=== PATIENT | male | born 1950 | race Caucasian/White ===

== ENCOUNTER → 2020-06-02 11:17 | Outpatient (CLI) | payer OTHER, SELFPAY ==
[2020-06-02 11:32] LABS: Bacteria Urine None Seen; RBC Urine None Seen (0-5/HPF); WBC Urine None Seen (0-5/HPF)
[2020-06-02 11:58] LABS: Add Manual Diff / Slide Review NO; Basophils Absolute Auto 0 /uL (0-100); Basophils Percent Auto 0.4 % (0-2); Eosinophils Absolute Auto 100 /uL (0-450); Eosinophils Percent Auto 0.9 % (2-4); Hematocrit 40.8 % (41-53); Hemoglobin 14.1 g/dL (13.5-17.5); Lymphocytes Absolute Auto 1800 /uL (1100-4500); Lymphocytes Percent Auto 22.7 % (25-40); Mean Corpuscular HGB Conc 34.7 % (30-36); Mean Corpuscular Hemoglobin 30.5 PG (26-34); Mean Corpuscular Volume 87.9 fL (80-100); Monocytes Absolute Auto 700 /uL (0-900); Monocytes Percent Auto 8.7 % (3-14); Neutrophils Absolute Auto 5400 /uL (1500-7000); Neutrophils Percent Auto 67.3 % (50-75); Platelet Count 263 X10^3/uL (150-400); Red Blood Cell Count 4.64 X10^6/uL (4.5-5.9); Red Cell Distribution Width 13.8 % (11.6-14.8)
[2020-06-02 12:05] LABS: BUN Creatinine Ratio 25.6 (6-22); Blood Urea Nitrogen 23 mg/dL (9-20); Calcium 10.7 mg/dL (8.4-10.2); Carbon Dioxide 25 mmol/L (22-32); Chloride 105 mmol/L (98-107); Estimated Glomerular Filt Rate > 60.0 mL/min (>60); Glucose 127 mg/dL (80-110); HEMOLYSIS < 15 (0-50); Potassium 4.8 mmol/L (3.4-5.1); Sodium 139 mmol/L (137-145)
[2020-06-02 12:15] LABS: Appearance Urine UA CLEAR; Bilirubin Urine UA NEGATIVE (NEGATIVE); Color Urine UA YELLOW; Glucose Urine UA TRACE g/dL (Negative); Ketones Urine UA TRACE (NEGATIVE); Leukocyte Esterase Urine UA NEGATIVE (NEGATIVE); Nitrite Urine UA NEGATIVE (Negative); Occult Blood Urine UA NEGATIVE (Negative); Protein Urine UA NEGATIVE (Negative); Specific Gravity Urine UA 1.025 (1.000-1.035); Urobilinogen Urine UA 0.2 E.U./dL (0.2); pH Urine UA 5.5 (4.5-8.0)
[2020-06-02 12:20] LABS: Culture Indicated Urine Cult Not Indicated; Urine Comments Microscopic Normal
== END ==
PROVIDERS: Referring Provider Orthopaedic Surgery; Visit Provider Orthopaedic Surgery
DX: Z01.818 Encounter for other preprocedural examination (principal); Z01.812 Encounter for preprocedural laboratory examination; R73.9 Hyperglycemia, unspecified; N39.0 Urinary tract infection, site not specified
CPT/HCPCS: 36415; 80048; 81001; 83036; 85025; 93005; 93010

== ENCOUNTER → 2020-06-28 09:25 | Outpatient (CLI) | payer OTHER, SELFPAY ==
[2020-06-28 11:13] LABS: COVID19 -Nasal RAPID Negative (Negative)
== END ==
PROVIDERS: Referring Provider Orthopaedic Surgery; Visit Provider Student in an Organized Health Care Education/Training Program
DX: Z01.812 Encounter for preprocedural laboratory examination (principal); Z20.822 Contact with and (suspected) exposure to COVID-19
CPT/HCPCS: 87635

== ENCOUNTER 2020-06-29 08:32 | Day surgery (SDC) | payer OTHER, SELFPAY ==
[2020-06-29] VITALS (13 sets, daily range): BP systolic 116–163; BP diastolic 61–89; PULSE 51–61; RESP 11–18; TEMP 36.2–36.6; O2SAT 95–100; BMI 30.3
--- NOTE | 2020-06-29 06:00 | DI.RAD.S_ITS ---
PROCEDURE: XR HIP W PEL IF DONE RT 2V INDICATIONS: right total hip TECHNIQUE: AP pelvis and lateral view of the right hip acquired. COMPARISON: [facility], CR, XR PELVIS 1-2V, 06/29/2020, 12:42. [facility] [place], CR, XR PELVIS WITH LATERAL HIP RIGHT, 05/19/2020, 11:52. FINDINGS: Bones: Patient is status post right hip arthroplasty, with hardware components in expected positions. The hip joint appears congruent. The visualized bony structures appear intact. Soft tissues: Overlying postoperative changes are noted. No suspicious soft tissue densities. IMPRESSION: Right hip prosthesis in anatomic alignment. Dictated by: Anastasia Gordillo M.D. on 06/29/2020 at 17:31 Approved by: Anastasia Gordillo M.D. on 06/29/2020 at 17:31
[2020-06-29] MEDS: LACTATED RINGERS 1,000 ML 42 ML IV ×2 (09:08→13:15)
[2020-06-29] MEDS: ACETAMINOPHEN 325 MG TABLET 975 MG PO (09:09)
[2020-06-29] MEDS: CELECOXIB 200 MG CAPSULE PO (09:09)
[2020-06-29] MEDS: VANCOMYCIN 1,000 MG/200 ML PIGGYBACK 200 MG IV (09:52)
--- NOTE | 2020-06-29 11:04 | PM.PREOP ---
Pre-operative Note COVID-19 COVID-19 status: Negative Interval Note History & Physical reviewed/Exam performed by Physician: Yes Changes to H&P: No
--- NOTE | 2020-06-29 11:04 | PM.OP.1 ---
Operative Date/Time/Diagnoses Date of procedure: 06/29/20 Time of procedure: 11:39 Pre-op diagnosis: right hip OA Post-op diagnosis: same Procedure & Clinicians Procedure: Right total hip posterior approach Same procedure as scheduled: Yes Indications: The patient has had progressively worsening right hip pain with radiographic changes consistent with arthritis. Non-operative management has failed and the patient has requested total hip replacement. The risks, benefits and alternatives to surgery were discussed with the patient prior to proceeding. Risks discussed included, but were not limited to, failure to relieve pain, leg length discrepancy, dislocation, stiffness, infection, nerve damage, deep venous thrombosis, pulmonary embolism, stroke, coma, heart attack, permanent paralysis and , as well as the potential need for eventual revision of the prosthetic. Surgeon: Lisa Braswell [facility] Director: Luisito Rodrigues Click Yes if Unassisted: Yes Anesthesia Type: General and Spinal Operative Notes Findings: Severe right hip arthritis, good bone and adequate stability Closure Type: primary Specimen(s): none sent Prosthetic devices, grafts, tissues, transplants, or devices: Braswell and nephew 54 mm R3 cup, one screw, neutral poly liner, size 8 high offset anthology a fit, +0 head Applied: drain(s) Estimated Blood Loss (mL): 250 Blood products transfused: none Procedure in detail: The patient was seen in the pre-operative area, where the patient identified the right hip as the operative site and this was marked with my initials. The patient received pre-operative antibiotics and was taken to the operating room and placed on the operative table in the left lateral decubitus position after satisfactory anesthesia. A timekeeper out was performed. The right leg was prepared from the ankle to the iliac crest with ChloroPrep in the usual fashion and draped through sterile drapes. The hip was approached through an approximately 20 cm incision centered over the greater trochanter and curving gently posteriorly as it went proximally. This was carried sharply to the fascia wilmer, which was divided and retracted with a self retaining retractor. The trochanteric bursa was excised with care being taken to avoid the sciatic nerve, which was identified and protected throughout the case. The short external rotators were incised and the capsulomuscular flap was raised and tagged for later repair. The hip was dislocated, and a femoral neck osteotomy performed approximately 15 mm above the lesser trochanter. Retractors were placed around the femur. The canal was opened with a box cutting osteotome, followed by a T handled reamer and a lateralizing reamer. The chili pepper broach was then used, followed by sequential broaching until there was good stability of the broach in the femur. He had a fairly small canal distally in an anthology a was selected for broaching. Retractors were placed to expose the acetabulum. The labrum and central soft tissues were removed. Reaming was performed initially going up in 2 mm increments, then 1 mm increments until good bite was obtained with an odd sized reamer. The cup 1 mm larger than the last reamer was then inserted using the appropriate anteversion guides. A trial neutral liner was placed. The broach was placed in the canal. A trial head and neck were then placed and the hip relocated and checked for leg length and stability. An intraoperative film confirmed the component position and no evidence of fracture. The patient was stable in the position of sleep, of squatting, and could be put through a range of motion with 45 degrees internal rotation without dislocation. At 90 degrees flexion, internal rotation to 80? was possible before dislocation. I did several different trials including a standard offset and a high offset he had much better stability with the high offset. I also placed screw in the acetabulum to further stabilize the acetabulum. This was felt to be satisfactory and the appropriate components were opened, and the trials were removed. The acetabular liner was impacted into position. The final stem was then impacted into the prepared femoral canal. A brief Betadine soak was performed while trialing with head options. The hip was meticulously irrigated with normal saline. Finally the femoral head was impacted onto the stem. The acetabulum was cleared of all material and the hip relocated one final time. The capsulomuscular flap was then repaired to the greater trochanter though an awl hole using the tag sutures. The short external rotators were repaired with a nonabsorbable suture. A deep drain was placed and brought out anteriorly. The fascia wilmer was closed with Vicryl. The subcutaneous layer was closed with barbed sutures and SteriStrips. An Aquacel Ag dressing was applied and the patient was taken to recovery having tolerated the procedure well. Complications: none Post-operative Condition: critical Disposition: Acute Care Plan for aftercare: The patient will be maintained on a standard total hip replacement protocol with weight bearing as tolerated and posterior hip precautions. The patient will receive Aspirin and sequential compression devices for DVT prophylaxis. The patient will be discharged home when safe for the home environment.
[2020-06-29] MEDS: CEFAZOLIN 1 GM VIAL 2 GM IV ×2 (11:16→18:55)
[2020-06-29] MEDS: TRANEXAMIC ACID 1,000 MG VIAL 1000 MG INJ ×2 (11:44→13:23)
--- NOTE | 2020-06-29 12:00 | DI.RAD.S_ITS ---
PROCEDURE: XR PELVIS 1-2V INDICATIONS: TOTAL RIGHT HIP TECHNIQUE: Intra-operative view of the pelvis and hip acquired. COMPARISON: [facility] [place], CR, XR PELVIS WITH LATERAL HIP RIGHT, 05/19/2020, 11:52. [facility], CR, XR PELVIS WITH LATERAL HIP RIGHT, 10/23/2019, 9:20. FINDINGS: Bones: Intraoperative devices prior to placement of arthroplasty prostheses are in expected positions. No fractures or suspicious bony lesions. Soft tissues: Overlying surgical retractors are present, along with other intraoperative changes. IMPRESSION: Intraoperative device in anatomic alignment. Dictated by: Anastasia Gordillo M.D. on 06/29/2020 at 14:23 Approved by: Anastasia Gordillo M.D. on 06/29/2020 at 14:23
--- NOTE | 2020-06-29 12:05 | SUR.OPER ---
Lateral on padded OR bed. Gel axillary roll. Arms secured on padded armboard with pillow supporting top arm. Padded hip positioner braces x4 - anterior and posterior chest and pelvis. Additional gel pad used anterior pelvis. Gel pad under bottom leg from knee to foot and secured with tape over sheet.
[2020-06-29] MEDS: BUPIVACAINE 0.25% W/ EPI 30 ML VIAL 60 ML INJ (12:11)
[2020-06-29] MEDS: BUPIVACAINE LIPOSOME 266 MG/20 ML VIAL INJ (12:12)
[2020-06-29] MEDS: SODIUM CHLORIDE IRRIG SOLUTION 250 ML, EPINEPHrine 1 MG IRR (12:13)
[2020-06-29] MEDS: LACTATED RINGERS 1,000 ML 125 ML IV ×2 (14:59→23:56)
[2020-06-29] MEDS: IBUPROFEN 400 MG TABLET PO ×2 (16:54→20:27)
[2020-06-29] MEDS: ACETAMINOPHEN 325 MG TABLET 650 MG PO ×2 (16:54→20:26)
[2020-06-29] MEDS: METFORMIN HCL 500 MG TABLET PO (16:54)
[2020-06-29] MEDS: ASPIRIN EC 81 MG TABLET PO (20:26)
[2020-06-29] MEDS: DOCUSATE 100 MG CAPSULE PO (20:26)
[2020-06-29] MEDS: ATORVASTATIN 20 MG TABLET 40 MG PO (20:27)
--- NOTE | 2020-06-29 22:44 | PC.NURSE ---
PATIENT UNABLE TO URINATE,UP TO BATHROOM WITHOUT RESULTS, REQUESTS APPROX. 30MINUTES TO DRINK MORE WATER AND TRY AGAIN.DOES NOT WANT STRAIGHT CATH TO BE PLACED IF AT ALL POSSIBLE
[2020-06-30] MEDS: IBUPROFEN 400 MG TABLET PO ×4 (00:13→13:29)
[2020-06-30] MEDS: LIDOCAINE JELLY 2% 5 ML 5 APPLIC TOP (00:13)
--- NOTE | 2020-06-30 01:38 | PC.NURSE ---
Podiatry Doctor Note-Upon start of shift, patient ambulated into BR with walker and SBA, attempt to void again, was unable. Patient was anxious about In/Out catheter, I reviewed rational for procedure, agreed to proceed. Met some resistance during insertion of catheter which caused significant brief pain, when entered bladder, 900ml clear jeb urine was drained, patient then says I feel relieved. Scheduled ibuprofen given.
[2020-06-30] MEDS: CEFAZOLIN 1 GM VIAL 2 GM IV (03:09)
[2020-06-30 05:09] VITALS: BP 120/70; PULSE 59; RESP 18; TEMP 36.4; O2SAT 95
[2020-06-30 06:01] LABS: Hematocrit 35.3 % (41-53); Hemoglobin 11.9 g/dL (13.5-17.5)
[2020-06-30 08:00] VITALS: BP 116/65; PULSE 58; RESP 16; TEMP 36.5; O2SAT 97
[2020-06-30] MEDS: METFORMIN HCL 500 MG TABLET PO (08:28)
[2020-06-30] MEDS: ACETAMINOPHEN 325 MG TABLET 650 MG PO ×2 (08:29→13:30)
[2020-06-30] MEDS: lisinopriL 5 MG TABLET PO (08:29)
[2020-06-30] MEDS: ASPIRIN EC 81 MG TABLET PO (08:29)
[2020-06-30] MEDS: DOCUSATE 100 MG CAPSULE PO (08:29)
[2020-06-30] MEDS: AMLODIPINE 5 MG TABLET 10 MG PO (08:29)
[2020-06-30] MEDS: SODIUM CHLORIDE 0.9% FLUSH 10 ML IV (08:30)
--- NOTE | 2020-06-30 09:05 | PT.IIE ---
Current Diagnoses Unilateral primary osteoarthritis, right hip (06/29/20) Surgery Performed Operation Date: 06/29/20 10:45 Actual Procedures p Total Hip Arthroplasty(Right) - Lisa Braswell MD Medical History (Last Updated 06/29/20 @ 08:27 by Dafne Ramon RN) Diabetes Diabetes Hyperlipidemia Hypertension Physical Therapy Inpatient Evaluation/Re-Eval M1 PT/OT-IP Prior Functional Status Start: 06/30/20 11:38 Freq: NEEDED Status: Active Protocol: Document 06/30/20 09:05 AB (Rec: 06/30/20 11:49 AB [id number]) Medical Review Prior Functional Status Medical History Reviewed Yes Communication able to make needs known Mobility and Gait pt stated that he is modified independent with all mobilities and ambulation without AD indoors but uses a SPC for outdoor mobility Social History Household Members spouse Living Arrangements Apartment/Condo Number of Floors (Floors) Two Floors Number of Stairs To Enter/Railing? pt stays on main level of the house 5 steps with wide B rails ( can only hold on to 1 rail at a time) Home Environment High Toilet,Tub/Shower Home Equipment Front Wheel Walker,Straight Cane,Hand Held Shower Employment Status Retired Additional Social History Comment pt will sleep on a daybed M2 PT-IP Current Condition Start: 06/30/20 11:38 Freq: NEEDED Status: Active Protocol: Document 06/30/20 09:05 AB (Rec: 06/30/20 11:49 AB [email or web address]) Physical Therapy Current Condition Current Condition Evaluation Date 06/30/20 Treatment Diagnosis s/p R EBONY posterior approach; difficulty in walking Onset Date 06/29/20 Precautions Posterior Hip Precautions No Hip Flexion > 90 degrees,No Hip Internal Rotation,No Hip Adduction Weight Bearing Status Weight Bearing Status Weight Bear as Tolerated Allowed Weight Bearing Amount (enter % RLE WBAT or #) (%) M3 PT-IP Subjective Start: 06/30/20 11:38 Freq: NEEDED Status: Active Protocol: Document 06/30/20 09:05 AB (Rec: 06/30/20 11:49 AB [email or web address]) Subjective Physical Therapy Visit Type Type Initial Evaluation Visit Start Time 09:05 Visit Stop Time 10:05 Total Visit Minutes 60 Number of METER TESTER POLYPHASE Visits 0 Physical Therapy Visit Comments Patient Comments pt is agreeable to do PT Therapy Pain Assessment Pain Present Pain Present Denied Pain M4 PT-IP Mobility and Gait Start: 06/30/20 11:38 Freq: NEEDED Status: Active Protocol: Document 06/30/20 09:05 AB (Rec: 06/30/20 11:49 AB [email or web address]) PT-Bed Mobility Assessment Supine to Sit Supine to Sit Standby Assistance Sit to Supine Sit to Supine Standby Assistance Scooting Scooting to Edge of Bed Standby Assistance PT-Transfer Assessment Sit to and From Stand Sit to and from Stand Standby Assistance,Contact Guard Assistance,1 Person Assistance,Use of Upper Extremities Equipment Transfer Assistive Device Gait Belt,Front Wheeled Walker Orthotic/Prosthetic Devices or Brace: No Transfers Transfer Destination Chair Transfer Technique Stand Step Pivot Transfer Ability Level of Assist Standby Assistance,Contact Guard Assistance,1 Person Assistance,Use of Upper Extremities Comments Mobility Comments pt up and standing when PT came in. instructed to sit down. educated pt regarding hip precautions and understood . pt can be impulsive. completed sit to stand CGA and cues with LOB posteriorly and instructed for steadiness. instructed pt to sit back. educated pt on sit to stand techniques. completed sit <> stand x 5 reps SBA with initial cues but kirstie to complete without cues after a few reps. completed ambulation in room using FWW CGA ~ 30 ft and cued for R quads activation. educated on safety. pt rested on chair and agreed to ambulate and do stairs afterwards. completed sit to stand from chair SBA and ambualted ~ 150 ft using fWW SBA. educated on up/down steps using R rail ascending. pt completed CGA with initial cues and able to complete another set without cues. pt ambulated back to his room using FWW SBA. agreed to sit up on chair. call light and table placed within reach. Gait Assessment Gait Gait Assistance Required: Standby Assistance,Contact Guard Assist,1 Person Assist Distance (Feet) 150 Able to Maintain Weight Bearing Status Yes During Gait Assistive Devices Assistive Device Gait Belt,Front Wheeled Walker Orthotic/Prosthetic Devices or Brace: No Gait Deviations General Gait Pattern Antalgic,Decreased Stride Length,Decreased Feet Clearance Factors Limiting Gait Function Factors Limiting Gait Function Decreased Activity Tolerance, Decreased Strength,Pain,Poor Balance,Poor Safety Awareness Comments Gait Comments pls refer to mobility section for details Stair Climbing Assessment Evaluation Level of Assist On Stairs Contact Guard Assistance Devices Stair Climbing Assistive Devices Right Railing Technique/Endurance Stair Climbing Direction Ascend and Descend Stair Climbing Technique Step to Step Number of Steps Climbed 3 Query Text: Stair Climbing Set # Repetitions (reps) 2 PT-Balance Assessment Sitting Balance and Reactions Static Sitting Balance Ability Normal Dynamic Sitting Balance Ability Good Standing Balance and Reactions Static Standing Balance Ability Fair Dynamic Standing Balance Ability Fair Device Used FWW M5 PT-IP Objective Assessments Start: 06/30/20 11:38 Freq: NEEDED Status: Active Protocol: Document 06/30/20 09:05 AB (Rec: 06/30/20 11:49 AB [email or web address]) Orientation Orientation/Cognition Level of Alertness Alert Orientation Name,Age,Birthday,Month,Date, Year,Day of Week,Place, Situation Language Function Ability No Deficits Noted Safety Awareness Decreased Safety Awareness Memory Description No Deficits Noted Gross Range of Motion Lower Extremity ROM Assessment Within Functional Limits Strength Lower Extremity Strength Assessment Right Impaired Hip 3+/5 Knee 4-/5 Coordination Assessment Gross Coordination Gross Coordination WNL Sensation Assessment Sensation Gross Sensation WNL Muscle Tone Muscle Tone WNL Yes M6 PT-IP Treatment Start: 06/30/20 11:38 Freq: NEEDED Status: Active Protocol: Document 06/30/20 09:05 AB (Rec: 06/30/20 11:49 AB [email or web address]) Physical Therapy Treatment Education Education Provided Precautions,Weight Bearing Status,Post-Op Packet,Safety M7 PT-IP Assessment and Plan Start: 06/30/20 11:38 Freq: NEEDED Status: Active Protocol: Document 06/30/20 09:05 AB (Rec: 06/30/20 11:49 AB [email or web address]) PT Summary Assessment and Plan Potential Rehabilitation Potential Good Status of Condition at Evaluation Stable Summary Impairments Pain,ROM,Strength,Balance, Coordination,Sensation,Tone, Cognition,Bed Mobility, Transfers,Gait,Activity Tolerance Assessment Summary pt requiring SBA with ambulation using FWW and CGA for stair climbing for safety. pt plans to go home with spouse to assist him and has outpt PT set up. pt may go home when medically stable. pt stated that he feels confident to go home and does not feel that caregiver training is necessary. Goals Bed Mobility Goal Independent Transfer Goal Independent,Front Wheeled Walker Gait Goal Independent,Front Wheel Walker Gait Distance 350 Other Goals up/down 3 steps 1 rail SBA Days to Meet Goals 3 Frequency of Treatment Frequency Of Treatment Twice a Day Treatment Plan Physical Therapy Treatment Plan Bed Mobility Training,Transfer Training,Gait Training, Therapeutic Exercise,Balance Retraining,Post Op Education, Discharge Planning,Hot or Cold Pack,Neuromuscular Re-ed, Coordination Retraining,Manual Therapy Precautions Posterior Hip Precautions No Hip Flexion > 90 degrees,No Hip Internal Rotation,No Hip Adduction Recommendations To Nursing Amount of Assist Needed 1 Person Assist Discharge Recommendations PT Discharge Recommendations Home with Assistance, Outpatient PT Transportation Needs at Discharge Private Vehicle
--- NOTE | 2020-06-30 09:16 | PC.NURSE ---
Addendum entered by Bela Graves R.N. 06/30/20 14:39: Discharge orders received, awaiting ride (, Zahra), estimated D/C time is about 1515. Written and verbal d/c instructions given on hip replacement, oxycodone, and tylenol/ibuprofen. All questions answered. No meds in pharmacy and no valuables in safe. Oxycodone 5 mg PO administered for pt report of pain 3-5/10 depending on movement. Original Note: Day Shift Note Alert and oriented x3. SBA in room with FWW, denies pain, receiving Tylenol and ibuprofen. Dressing to right hip D/I. H/V discontinued to right hip without issue per Dr. Braswell's verbal order. Pt has voided total of 600 ml thus far this shift, reports feeling much better. Plan is to d/c to home after PT today. Call light within reach, using appropriately to make needs known.
[2020-06-30 09:27] VITALS: O2SAT 98
--- NOTE | 2020-06-30 11:42 | CM.DANOTE ---
Patient is a 69 year old male who was admitted on 04/01/20 for RTHA. Pt has [facility] for insurance and his PCP is Dr. Liriano. EMR was reviewed. Per Ortho MD, pt tolerated procedure well and likely can d/c home later today after PT eval and recommendations. Per PT, pt ambulated halls well with walker and recommending spouse bring in pt's front wheels for his walker for better ambulation. PT recommending home with FWW and outpt PT. SW met bedside with pt and explained role and he confirms he lives at home in [place] with his and is independent at baseline with ADL's and drives. Pt denies any hx of HH or SNF and DPOA is his . Pt states he has struggled with his hip since last year August 2019 after falling off a ladder and is hopeful this will get him back to his baseline activity prior to the fall. Pt is already set up at [facility] outpt PT in [place] and is agreeable with plan of d/c home today and states his is just waiting for the call that he has discharge orders. Pt does not anticipate any needs at d/c. SW updated RN that pt should hopefully d/c before 1400 and RN kindly plans to contact Ortho team if no d/c orders received by 1300. Plan: SW to follow for plan of d/c home via spouse POV this afternoon and outpt PT already set up. VIN Knight Discharge Planning/Care Management CM Discharge Assessment Start: 06/30/20 11:41 Freq: Status: Active Protocol: Document 06/30/20 11:41 BF (Rec: 06/30/20 11:42 [id number]) Discharge Planning Assessment Assigned Supervisor Color Paste Mixing VIN Bragg DPOA/Assigned Designee Name spouse Zahra Contact Information [phone] Advance Directives? No Advance Directives on File No History Provided By Patient,Medical Record Has Patient been admitted in last 30 No days? Prior Living Arrangements House Household Members spouse Type of transporation used prior to Drives own vehicle admit Independent with ADL's Yes Is patient alert and oriented? Yes Caregiver for Another No Community Services used prior to Physical Therapy admission: DME Already Rented / Owned FWW / Walker Patient/Family Preference OP PT Therapy Barriers to Discharge No Discharge Plan Home Community Services Physical Therapy Transportation Arrangement Spouse plans to transport at d /c Referrals Initiated None needed Whiteboard Updated in Patient Room with Yes name and ext. # of Supervisor Color Paste Mixing Review Status In Process Please Provide Date Initial DC 06/30/20 Assessment Was Performed Next Review Type Continued Stay Review
--- NOTE | 2020-06-30 14:09 | PM.DS.1 ---
History of Present Illness History of Present Illness Date Patient Seen: 06/30/20 Time Patient Seen: 14:09 Chief complaint: Right Total Hip Arthroplasty *OPB* Narrative: Pain is [id number]. Denies fever chills. Discharge Providers Provider Discharge Date: 06/30/20 Consults: 06/29/20 06:00 Consult to Anesthesiology Routine Comment: Consulting Provider: Anesthesiologist Reason for consultation: Regional block for post operative pain control 06/29/20 14:43 Consult to Discharge Planning Routine Comment: Consult to Physical Therapy Evaluate & Treat Comment: Physician Instructions: post op EBONY protocol Consult to Respiratory Therapy Evaluate & Treat Comment: Physician Instructions: Evaluate and treat Discharge provider: Edmund Herzog PA-C Summary Hospital Course Discharge Diagnosis: right hip OA Hospital Course: Procedure: Right total hip posterior approach Same procedure as scheduled: Yes Indications: The patient has had progressively worsening right hip pain with radiographic changes consistent with arthritis. Non-operative management has failed and the patient has requested total hip replacement. The risks, benefits and alternatives to surgery were discussed with the patient prior to proceeding. Risks discussed included, but were not limited to, failure to relieve pain, leg length discrepancy, dislocation, stiffness, infection, nerve damage, deep venous thrombosis, pulmonary embolism, stroke, coma, heart attack, permanent paralysis and , as well as the potential need for eventual revision of the prosthetic. Surgeon: Lisa Braswell Advertising Supervisor: Luisito Rodrigues Click Yes if Unassisted: Yes Anesthesia Type: General and Spinal Operative Notes Findings: Severe right hip arthritis, good bone and adequate stability Closure Type: primary Specimen(s): none sent Prosthetic devices, grafts, tissues, transplants, or devices: Braswell and nephew 54 mm R3 cup, one screw, neutral poly liner, size 8 high offset anthology a fit, +0 head Applied: drain(s) Estimated Blood Loss (mL): 250 Blood products transfused: none Patient admitted to the hospital for the above-mentioned procedure. Patient consented to the same. Patient taken to operating room back into the room today recovering well as in stable condition. Discharge home today in stable condition. Exam Vital Signs (past 8 hours): - 06/30/20 08:00 06/30/20 09:27 Temperature 97.7 F Pulse Rate 58 L Respiratory Rate 16 Blood Pressure 116/65 Pulse Oximetry 97 98 Oxygen Delivery Method Room Air Oxygen Flow Rate 0 Narrative Exam Narrative: Pleasant 69-year-old male resting comfortably in bedside chair no apparent distress. Dressing is Clean, dry, intact.. Neurovascular status is intact distally Objective Labs Result Diagrams: 06/30/20 05:12 Labs: Laboratory Results - last 24 hr 06/30/20 05:12 Hgb 11.9 L Hct 35.3 L COUNTS INCLUDE 234 BEDS AT [facility] Medical History (Updated 06/29/20 @ 08:27 by Dafne Ramon RN) Diabetes Diabetes Hyperlipidemia Hypertension Social History household members: spouse Smoking Status: Never smoker alcohol intake: current Discharge Assessment & Plan Assessment and Plan Assessment: Patient progressing as expected Plan of Treatment: Discharged home in stable condition Discharge Plan Discharge Plan Patient Disposition: Home Discharge orders & Medications Discharge Orders: Discharge (Order); Ordered 06/30/20 Ordered By: Edmund Herzog Prescriptions: New acetaminophen 325 mg Tablet 650 mg PO TID Qty: 60 RF: 0 aspirin 81 mg Tablet,Delayed Release (Dr/Ec) 81 mg PO BID Qty: 60 RF: 0 ibuprofen 400 mg Tablet 400 mg PO Q4HR Qty: 60 RF: 0 oxycodone 5 mg Tablet 5 mg PO Q3HR PRN (Reason: Pain, Moderate (4-6)) Qty: 40 RF: 0 polyethylene glycol 3350 17 gram Powder In Packet 17 gm PO DAILY PRN (Reason: Constipation) Qty: 10 RF: 0 Continued atorvastatin 40 mg Tablet 40 mg PO DAILY RF: 0 metformin 500 mg Tablet 500 mg PO BID RF: 0 amlodipine 10 mg Tablet 10 mg PO DAILY RF: 0 lisinopril 5 mg Tablet 5 mg PO DAILY RF: 0 Follow up/Referrals: Lisa Braswell MD [Physician] - (2 weeks) Diet/Activity/Treatments Diet: Diet as Tolerated Activity: Weight-bearing as tolerated, posterior hip precautions Skin/Wound/Dressing Care Report to your healthcare provider any signs of infection, such as:: chills, fever, increased pain, unusual drainage and unusual redness Dressing: Keep dressing clean and dry Visit Report/Discharge Packet Instructions: DI for Hip Replacement Stand Alone Forms: Surgery Discharge Discharge Data Attending Provider: Lisa Braswell Quality VTE Deep Vein Thrombosis/Pulmonary Embolism Present on Admission: No
[2020-06-30] MEDS: OXYCODONE IR 5 MG TABLET PO (14:27)
--- NOTE | 2020-06-30 15:29 | PC.NURSE ---
Patient given discharge instructions and education per previous shift RN. Taken down via wheelchair by CUSTOMER SERVICE AGENT to private vehicle. No s/s of distress, verbalized no further needs.
== END 2020-06-30 15:28 | disposition home or self-care (01) ==
LOC: OR 08:34 → AC 10:19
PROVIDERS: Referring Provider Orthopaedic Surgery; Visit Provider Orthopaedic Surgery
PROC: 0SR90JZ Replacement of Right Hip Joint with Synthetic Substitute, Open Approach (ICD-10-PCS; CPT 27130; principal; 2020-06-29 10:45)
DX: M16.11 Unilateral primary osteoarthritis, right hip (principal); I10 Essential (primary) hypertension; E11.9 Type 2 diabetes mellitus without complications; Z79.84 Long term (current) use of oral hypoglycemic drugs; E78.5 Hyperlipidemia, unspecified
CPT/HCPCS: 27130; 36415; 72170; 73502; 82962; 85014; 85018; 94762; 97161; 97530; C1776; C9290; J0171; J0690; J2250; J2274; J2405; J2704; J3010